=== PATIENT | male | born 1940 | race Caucasian/White ===

== ENCOUNTER 2019-12-18 09:17 | Day surgery (SDC) | payer MEDICARE, BC ==
[~2019-12-18] VITALS: Ht 170.2 cm; Wt 81.1 kg
[2019-12-18 09:49] VITALS: BP 125/60; PULSE 65; TEMP 98.3
[2019-12-18] MEDS ORDERED: PRINIVIL20 MG PO (09:55)
[2019-12-18] MEDS ORDERED: FLUTAMIDE 125 MG PO (09:55)
[2019-12-18] MEDS ORDERED: CRESTOR20 MG PO (09:56)
[2019-12-18] MEDS ORDERED: FOSAMAX 70MG TA70 MG PO (09:56)
[2019-12-18] MEDS ORDERED: NORVASC 10MG10 MG PO (09:57)
[2019-12-18] MEDS ORDERED: CALCIUM 600-D 61 TAB PO (09:57)
[2019-12-18] MEDS ORDERED: OMEGA-3 1000 MG1 CAP PO (09:58)
[2019-12-18] MEDS ORDERED: PRILOTC PO (09:59)
[2019-12-18 11:00] VITALS: BP 114/81; PULSE 54; TEMP 97.5
--- NOTE | 2019-12-18 11:00 | NUR ---
Patient brought back to [facility] via cart. Ambulated to chair with assist. Placed on monitors, vital signs stable. Dr. Chan at bedside to explain results to patient. Tammy RN at bedside for report. Patient denies pain or nausea. Requests juice and pudding. called, update given. Warm blanket provided, call muniz within reach. Will continue to monitor.
[2019-12-18 11:15] VITALS: BP 131/61; PULSE 50
--- NOTE | 2019-12-18 11:15 | NUR ---
Patient tolerating food and drink without difficulty. Denies nausea. Vital signs stable. Will continue to monitor.
[2019-12-18 11:30] VITALS: BP 129/66; PULSE 60
--- NOTE | 2019-12-18 11:30 | NUR ---
Patient states he feels ready to go home at this time. IV removed, intact. Patient to get dressed. Will continue to monitor.
--- NOTE | 2019-12-18 11:40 | NUR ---
Discharge instructions reviewed with patient and family member. All questions answered. Patient brought down to lobby via wheel chair. to drive patient home. All belongings in hand.
== END 2019-12-18 11:40 | disposition home or self-care (01) ==
LOC: SDCO 09:17
DX: D12.2 Benign neoplasm of ascending colon (principal); D12.5 Benign neoplasm of sigmoid colon; K57.30 Diverticulosis of large intestine without perforation or abscess without bleeding; D50.9 Iron deficiency anemia, unspecified; K29.30 Chronic superficial gastritis without bleeding; K21.0 Gastro-esophageal reflux disease with esophagitis; K44.9 Diaphragmatic hernia without obstruction or gangrene; I10 Essential (primary) hypertension; M19.90 Unspecified osteoarthritis, unspecified site; Z20.828 Contact with and (suspected) exposure to other viral communicable diseases; Z85.46 Personal history of malignant neoplasm of prostate; Z92.3 Personal history of irradiation; Z87.891 Personal history of nicotine dependence; Z79.899 Other long term (current) drug therapy
CPT/HCPCS: J2704; J3010; J7030

== ENCOUNTER 2021-11-26 02:12 | Emergency (ER) | payer MEDICARE, BC ==
[~2021-11-26] VITALS: Ht 170.2 cm; Wt 79.5 kg
[~2021-11-26 02:12] MED LIST: CALCIUM 600-D 61 TAB PO; CRESTOR20 MG PO; FLUTAMIDE 125 MG PO; FOSAMAX 70MG TA70 MG PO; NORVASC 10MG10 MG PO; OMEGA-3 1000 MG1 CAP PO; PRILOTC PO; PRINIVIL20 MG PO
[2021-11-26 02:55] LABS: HEMATOCRIT 39.9 % (42.0-52.0); MEAN CELL VOLUME 88 fl (80.0-100.0); MEAN CORPUSCULAR HEMOGLOBIN 31 pg (27-31); MEAN CORPUSCULAR HGB CONC 35 g/dl (33.0-37.0); MEAN PLATELET VOLUME 9.9 fl (7.4-10.4); PLATELET COUNT 239 K/mm3 (130-400); RED BLOOD COUNT 4.52 M/mm3 (4.20-5.60); REDCELL DISTRIBUTION WIDTH-CV 12.2 % (11.5-14.5)
[2021-11-26 03:14] LABS: ALBUMIN 4.6 gm/dL (3.4-4.8); BILIRUBIN,TOTAL 0.7 mg/dL (0.2-1.2); C-REACTIVE PROTEIN 0.16 mg/dL (0.00-0.50); CALCIUM 10.1 mg/dL (8.4-10.2); CREATININE, serum 1.14 mg/dL (0.72-1.25); TOTAL PROTEIN 7.8 gm/dL (6.2-8.1)
[2021-11-26 03:48] LABS: BAND 1 % (0-10); LYMPHOCYTE 5 % (20.0-51.0); NEUTROPHILS 94 % (42.0-75.2); PLATELET ESTIMATE NORMAL (NORMAL)
[2021-11-26 05:15] LABS: COLLECTION METHOD CLEAN CATCH
[2021-11-26] MEDS ORDERED: ZOFRAN 4MG T4 MG/TAB PO (05:24)
[2021-11-26] MEDS ORDERED: NORCO 325 MG-51 TAB PO (05:24)
[2021-11-26 05:32] LABS: MUCOUS Present (NOT PRESENT); PH 5 (5-8); SQUAMOUS EPITHELIAL None Seen /hpf (0-10); URINE APPEARANCE Clear (CLEAR/HAZY); URINE BACTERIA None Seen /hpf (NONE SEEN); URINE BLOOD Negative (NEGATIVE); URINE COLOR Yellow (YELLOW); URINE GLUCOSE 1+ (NEGATIVE); URINE KETONE 1+ (NEGATIVE); URINE NITRATE Negative (NEGATIVE); URINE PROTEIN(semi-quant) Negative (NEGATIVE); URINE UROBILINOGEN Negative (NEGATIVE)
[2021-11-26 05:53] VITALS: BP 170/79; PULSE 98; TEMP 97.9
== END 2021-11-26 05:56 | disposition home or self-care (01) ==
LOC: COL.ER 02:12
PROVIDERS: Nurse Practitioner
DX: K80.70 Calculus of gallbladder and bile duct without cholecystitis without obstruction (principal); Z90.49 Acquired absence of other specified parts of digestive tract
CPT/HCPCS: J1170; J2405; J7030; Q9967

== ENCOUNTER 2021-12-12 11:36 | Day surgery (SDC) | payer MEDICARE, BC ==
[~2021-12-12] VITALS: Ht 170.2 cm; Wt 74.4 kg
[2021-12-12] VITALS (9 sets, daily range): BP systolic 110–143; BP diastolic 46–57; PULSE 60–75; TEMP 97.6–97.9
[~2021-12-12 11:36] MED LIST changes: +NORCO 325 MG-51 TAB PO; +ZOFRAN 4MG T4 MG/TAB PO
[2021-12-12] MEDS ORDERED: CASODEX 50MG TA50 MG PO (12:03)
[2021-12-12] MEDS ORDERED: FLOMAX 0.40.4 MG/CAP PO (12:03)
[2021-12-12] MEDS ORDERED: NEXIUM 20MG20 MG PO (12:04)
[2021-12-12] MEDS ORDERED: NORVASC 10MG10 MG PO (12:04)
[2021-12-12] MEDS ORDERED: MELATONIN5 M1 PO (12:04)
[2021-12-12] MEDS ORDERED: FISH OIL1000 MG PO (12:05)
[2021-12-12] MEDS ORDERED: CALCIUM 600MG+D1 TAB PO (12:05)
[2021-12-12] MEDS ORDERED: FERROCITE324 MG PO (12:06)
[2021-12-12 12:30] LABS: BASO % 0.5 % (0.0-2.0); EOS % 0.5 % (0.0-4.0); GRAN # 6.2 K/mm3 (1.4-6.5); GRAN % 76.5 % (42.2-75.2); HEMOGLOBIN 11.7 g/dl (13.5-18.0); LYMPH # 1.2 K/mm3 (1.2-3.4); LYMPH % 14.8 % (20.0-51.0); MEAN CELL VOLUME 89 fl (80.0-100.0); MEAN CORPUSCULAR HEMOGLOBIN 31 pg (27-31); MEAN CORPUSCULAR HGB CONC 34 g/dl (33.0-37.0); MEAN PLATELET VOLUME 9.1 fl (7.4-10.4); MONO # 0.6 K/mm3 (0.1-0.6); MONO % 7.3 % (1.7-9.3); PLATELET COUNT 332 K/mm3 (130-400); RED BLOOD COUNT 3.84 M/mm3 (4.20-5.60); REDCELL DISTRIBUTION WIDTH-CV 11.8 % (11.5-14.5)
[2021-12-12 12:32] LABS: HEMATOCRIT 34.3 % (42.0-52.0)
[2021-12-12 12:49] LABS: ALBUMIN 3.3 gm/dL (3.4-4.8); BILIRUBIN,TOTAL 0.7 mg/dL (0.2-1.2); CALCIUM 9.4 mg/dL (8.4-10.2); CREATININE, serum 1.13 mg/dL (0.72-1.25); POTASSIUM 4.3 mmol/L (3.5-4.5); TOTAL PROTEIN 6.9 gm/dL (6.2-8.1)
--- NOTE | 2021-12-12 17:25 | NUR ---
Pt. arrived to the floor from PACU. Pt. is A&OX3, assessment complete. IV to rt. hand patent. Abd. incisions x3 with glue, well approximated. Jeffy dreain to rt. abd. with minimal bloody drainage noted. Pt. reports pain at a 4 on pain scale. Pt. denies further needs.
[2021-12-13 03:38] VITALS: BP 125/53; PULSE 62; TEMP 98.2
[2021-12-13 06:09] LABS: HEMOGLOBIN 11.7 g/dl (13.5-18.0); MEAN CELL VOLUME 89 fl (80.0-100.0); MEAN CORPUSCULAR HEMOGLOBIN 31 pg (27-31); MEAN CORPUSCULAR HGB CONC 34 g/dl (33.0-37.0); MEAN PLATELET VOLUME 9.4 fl (7.4-10.4); PLATELET COUNT 346 K/mm3 (130-400); RED BLOOD COUNT 3.84 M/mm3 (4.20-5.60); REDCELL DISTRIBUTION WIDTH-CV 11.8 % (11.5-14.5)
[2021-12-13 06:21] LABS: HEMATOCRIT 34.1 % (42.0-52.0)
[2021-12-13 06:22] LABS: BILIRUBIN,TOTAL 0.6 mg/dL (0.2-1.2); CALCIUM 9.2 mg/dL (8.4-10.2); CREATININE, serum 1.24 mg/dL (0.72-1.25); POTASSIUM 4.2 mmol/L (3.5-4.5); TOTAL PROTEIN 6.4 gm/dL (6.2-8.1)
--- NOTE | 2021-12-13 06:28 | NUR ---
VSS, afebrile, IVF infusing per piv @ 75cc/hr, not taking alot po yet. up to restroom to void, ANABELLE drain with 30 cc bloody drainage out. weaned off O2 to RA
[2021-12-13 07:45] VITALS: BP 125/51; PULSE 56; TEMP 98.4
[2021-12-13] MEDS ORDERED: NORCO 325 MG-51 TAB PO (09:35)
[2021-12-13] MEDS ORDERED: AMOXICILLIN 8751 TAB PO (09:36)
--- NOTE | 2021-12-13 09:48 | NUR ---
Pay Station Attendant met with patient to discuss discharge planning. Patient lives in [place] with his , Yudy (ph#[phone]) and sees Dr. Poon for primary care. Patient obtains medications from [facility] and does not use any DME. Patient does not have Advance Directives and is not interested in completing DPOA-HC form at this time. Patient is independent with ADLS and plans to return home at time of discharge. Discharge Plan: Home
--- NOTE | 2021-12-13 10:00 | NUR ---
Pt. sitting up in chair at this time. Pt. is A&OX3, assessment complete. INT to lt. hand noted. Abd. incisions x3 well approximated. ANABELLE drain to rt. abd. Gauze and tape CDI. Pt. denies pain. Pt. denies further needs, call light within reach.
--- NOTE | 2021-12-13 10:17 | NUR ---
Initial visit; Patient thanked Damascener for looking in on him and offering Spiritual Care. Damascener offered Wally God's blessings.
--- NOTE | 2021-12-13 10:30 | NUR ---
Dr. Vuong notified for clarification. Orders to pull ANABELLE drain.
--- NOTE | 2021-12-13 10:45 | NUR ---
ANABELLE drain discontinued. Pt. tolerated well. 4X4 gauze x2 and tegaderm placed over site. Starting IV abx at this time. INT to lt. hand leaking. Site discontinued, new 22g started to lt. forearm. Pt. tolerated well. Pt. denies further needs, call light within reach.
[2021-12-13 11:21] VITALS: BP 134/52; PULSE 61; TEMP 97.8
--- NOTE | 2021-12-13 12:30 | NUR ---
Pt. has met discharge criteria. INT discontinued from lt. forearm. Reviewed home meds, informed pt. of medication scripts sent to [facility]. Reviewed discharge instructions and follow up appointments. Pt. voices understanding. Pt. and escorted out by this nurse.
== END 2021-12-13 12:30 | disposition home or self-care (01) ==
LOC: SDCO 11:36 → SURG 17:25 → SDCO 12-13 12:30
PROVIDERS: Surgery
DX: K80.12 Calculus of gallbladder with acute and chronic cholecystitis without obstruction (principal); K82.1 Hydrops of gallbladder; K82.A1 Gangrene of gallbladder in cholecystitis; Z85.46 Personal history of malignant neoplasm of prostate; I10 Essential (primary) hypertension; Z79.899 Other long term (current) drug therapy; K21.9 Gastro-esophageal reflux disease without esophagitis
CPT/HCPCS: OP; J0690; J1100; J2270; J2405; J2543; J2704; J3010; J7120